=== PATIENT | male | born 1960 | race Caucasian/White ===

== ENCOUNTER 2016-08-11 11:43 | Emergency (ER) | payer OTHER ==
[~2016-08-11] VITALS: Ht 172.7 cm; Wt 85.2 kg
[~2016-08-11 11:43] MED LIST: FLEXERIL10 MG PO; HYDROCODON-ACE1 EAC7 PO; NAPROSYN500 MG PO; ZOFRAN4 MG PO
[2016-08-11] MEDS ORDERED: PANTOPRAZOLE SO40 MG PO (14:00)
[2016-08-11] MEDS ORDERED: DILTIAZEM 24HR240 MG PO (14:00)
[2016-08-11] MEDS ORDERED: LOSARTAN-HCTZ1 EACH PO (14:01)
[2016-08-11] MEDS ORDERED: FENOFIBRATE48 MG PO (14:01)
[2016-08-11 15:06] VITALS: BP 122/84
== END 2016-08-11 15:07 | disposition home or self-care (01) ==
LOC: EME 11:43
DX: S61.211A Laceration without foreign body of left index finger without damage to nail, initial encounter (principal); W22.8XXA Striking against or struck by other objects, initial encounter; Z23 Encounter for immunization; Z87.891 Personal history of nicotine dependence
CPT/HCPCS: 99281; 99284; S0020

== ENCOUNTER 2016-08-26 22:17 | Emergency (ER) | payer OTHER ==
[~2016-08-26] VITALS: Ht 172.7 cm; Wt 86.7 kg
[~2016-08-26 22:17] MED LIST changes: +DILTIAZEM 24HR240 MG PO; +FENOFIBRATE48 MG PO; +LOSARTAN-HCTZ1 EACH PO; +PANTOPRAZOLE SO40 MG PO
[2016-08-26 22:20] VITALS: BP 155/93
== END 2016-08-26 23:18 | disposition home or self-care (01) ==
LOC: EME 22:17
DX: S61.211D Laceration without foreign body of left index finger without damage to nail, subsequent encounter (principal); F17.200 Nicotine dependence, unspecified, uncomplicated
CPT/HCPCS: 99281; 99282

== ENCOUNTER 2016-09-30 22:20 | Emergency (ER) | payer OTHER ==
[~2016-09-30] VITALS: Ht 172.7 cm; Wt 87.1 kg
[2016-09-30] MEDS ORDERED: CEPHALEXIN250 MG PO (23:24)
[2016-09-30] MEDS ORDERED: SILVADENE20 GM TP (23:24)
[2016-09-30 23:43] VITALS: BP 131/77
== END 2016-09-30 23:40 | disposition home or self-care (01) ==
LOC: EME 22:20
DX: T22.212A Burn of second degree of left forearm, initial encounter (principal); X12.XXXA Contact with other hot fluids, initial encounter; Y99.0 Civilian activity done for income or pay
CPT/HCPCS: 99281; 99283